=== PATIENT | female | born 2000 | race Hispanic/Latino ===

== ENCOUNTER 2023-05-19 11:53 | Emergency (ER) | payer OTHER ==
[~2023-05-19] VITALS: Ht 172.7 cm; Wt 105.7 kg
[2023-05-19] MEDS ORDERED: CYCLOBENZAPRINE HCL 10 MG TABLET PO SCH (14:00)
[2023-05-19] MEDS ORDERED: KETOROLAC 30MG VIAL (30MG/ML) IM SCH (14:00)
[2023-05-19] MEDS ORDERED: IBUP-2070 PO (14:30)
[2023-05-19] MEDS ORDERED: CYCL5TAB PO (14:30)
[2023-05-19 14:36] VITALS: BP 120/78; PULSE 78; RESP 18; O2SAT 98
== END 2023-05-19 14:46 | disposition home or self-care (01) ==
LOC: EDBD 11:53 → EDH 11:53
DX: S00.03XA Contusion of scalp, initial encounter (principal); W22.8XXA Striking against or struck by other objects, initial encounter; Y93.89 Activity, other specified; Y92.89 Other specified places as the place of occurrence of the external cause; Y99.8 Other external cause status
CPT/HCPCS: 99285; 70450; 81025; 72125; 96372; J1885